=== PATIENT | female | born 1975 | race African-American/Black ===

== ENCOUNTER 2017-03-13 20:38 | Emergency (ER) | payer OTHER ==
[~2017-03-13] VITALS: Ht 157.5 cm; Wt 81.6 kg
[2017-03-13 20:58] VITALS: BP 108/66
--- NOTE | 2017-03-13 21:40 | NUR ---
PT.AMBULATE TO OF 2
--- NOTE | 2017-03-13 21:50 | NUR ---
41Y/F PATIENT PRESENTS TO ED WITH LT. ARM PAIN X 1 WK . PT STATES LT. ARM PAIN X 1 EK, NO TRAUMA NOR INJURY, NO MEDICAL HX.; SKIN IS PINK/WARM/DRY; AAOX4 WITH EVEN AND STEADY GAIT; LUNGS CLEAR BL; HR EVEN AND REGULAR; PT DENIES ANY FEVER, CP, SOB, OR COUGH AT THIS TIME;C/O LT. ARM PAIN PATIENT STATES PAIN OF 8/10 AT THIS TIME; VSS; PATIENT POSITIONED FOR COMFORT; HOB ELEVATED; BEDRAILS UP X2; BED DOWN. ER MD MADE AWARE OF PT STATUS.
[2017-03-13] MEDS ORDERED: KETOROLAC 60 MG/2 ML VIAL IM ONE (21:55)
--- NOTE | 2017-03-13 22:00 | NUR ---
Patient being evaluated by SERENA DICKERSON at bedside.
[2017-03-13 22:23] VITALS: BP 108/66
--- NOTE | 2017-03-13 22:23 | NUR ---
Patient discharged with v/s stable. Written and verbal after care instructions given and explained. Patient alert, oriented and verbalized understanding of instructions. Ambulatory with steady gait. All questions addressed prior to discharge. ID band removed. Patient advised to follow up with PMD. Rx of NORCO 5/325MG, MOTRIN 800 MG, MEDRL DOSEPAK 4 MG given. Patient educated on indication of medication including possible reaction and side effects. Opportunity to ask questions provided and answered.
== END 2017-03-13 22:23 | disposition home or self-care (01) ==
LOC: MED 20:38
CPT/HCPCS: 29125; 96372; 99283; J1885

== ENCOUNTER 2017-08-10 21:19 | Emergency (ER) | payer OTHER ==
[~2017-08-10] VITALS: Ht 157.5 cm; Wt 81.6 kg
[2017-08-10 21:25] VITALS: BP 124/71
--- NOTE | 2017-08-10 22:32 | NUR ---
AMBULATED TO ER BED 2
--- NOTE | 2017-08-10 22:45 | NUR ---
42/F CAME IN WITH C/O 04/25 RT ARMPIT PAIN X 2 DAYS. RT ARMPIT NOTED WITH BOIL, NO DRAINAGE, NO ERYTHEMA NOTED, +PMSC. PT DENIES FEVER, N/V/D. CURRENTLY AFEBRILE. DENIES PMH/RX. TOOK IBUPROFEN AT 0800, REPORTS EFFECTIVE PAIN RELIEF
--- NOTE | 2017-08-10 23:26 | NUR ---
Patient discharged with v/s stable. Written and verbal after care instructions given and explained. Patient alert, oriented and verbalized understanding of instructions. Ambulatory with steady gait. All questions addressed prior to discharge. ID band removed. Patient advised to follow up with PMD. Rx of CLINDAGEL TOPICAL given. Patient educated on indication of medication including possible reaction and side effects. Opportunity to ask questions provided and answered.
[2017-08-10 23:27] VITALS: BP 110/63
== END 2017-08-10 23:26 | disposition home or self-care (01) ==
LOC: MED 21:19
DX: L73.2 Hidradenitis suppurativa (principal)
CPT/HCPCS: 99283

== ENCOUNTER 2017-09-05 13:07 | Emergency (ER) | payer OTHER ==
[~2017-09-05] VITALS: Ht 157.5 cm; Wt 85.4 kg
[2017-09-05 13:10] VITALS: BP 148/72
--- NOTE | 2017-09-05 13:14 | NUR ---
PATIENT TO ER BED 12
--- NOTE | 2017-09-05 13:16 | NUR ---
42F BIB SELF C/O LEFT FOREHEAD PAIN X THIS AM; DENIES TRAUMA OR INJURY TO SITE AT THIS TIME. DENIES N/V/D; SKIN IS PINK/WARM/DRY; AAOX4 WITH EVEN AND STEADY GAIT; LUNGS CLEAR BL; PT DENIES ANY FEVER, CP, SOB, OR COUGH AT THIS TIME; PATIENT STATES PAIN OF 8/10 AT THIS TIME; 8 PATIENT POSITIONED FOR COMFORT; HOB ELEVATED; BEDRAILS UP X2; BED DOWN. ER MD MADE AWARE OF PT STATUS.
--- NOTE | 2017-09-05 13:50 | NUR ---
Patient being evaluated by DR AGUILERA at bedside.
[2017-09-05 13:55] LABS: APPEARANCE,URINE CLEAR (CLEAR); BILIRUBIN,URINE NEGATIVE (NEGATIVE); BLOOD, URINE TRACE-I (NEGATIVE); COLOR,URINE YELLOW (YELLOW); LEUKOCYTE ESTERASE ,URINE NEGATIVE (NEGATIVE); NITRITE, URINE NEGATIVE (NEGATIVE); UGLUCOSE NEGATIVE (NEGATIVE)
[2017-09-05] MEDS ORDERED: IBUPROFEN 600 MG TAB PO ONE (13:55)
[2017-09-05] MEDS ORDERED: ACETAMINOPHEN EXTRA STRENGTH 500 MG TAB PO ONE (13:55)
[2017-09-05 14:14] LABS: RBC,URINE 3-10 (FEW) /HPF (0-5); WBC,URINE 0-5 (RARE) /HPF (0-5)
[2017-09-05 15:44] VITALS: BP 110/67
--- NOTE | 2017-09-05 15:44 | NUR ---
Patient discharged with v/s stable. Written and verbal after care instructions given and explained. Patient alert, oriented and verbalized understanding of instructions. Ambulatory with . All questions addressed prior to discharge. ID band removed. Patient advised to follow up with PMD. Rx of IBUPROFEN & TYLENOL given. Patient educated on indication of medication including possible reaction and side effects. Opportunity to ask questions provided and answered.
== END 2017-09-05 15:44 | disposition home or self-care (01) ==
LOC: MED 13:07
DX: G44.209 Tension-type headache, unspecified, not intractable (principal)
CPT/HCPCS: 81001; 81025; 99283

== ENCOUNTER 2018-06-16 19:48 | Emergency (ER) | payer OTHER ==
[~2018-06-16] VITALS: Ht 157.5 cm; Wt 65.8 kg
[2018-06-16 19:53] VITALS: BP 114/61
--- NOTE | 2018-06-16 19:55 | NUR ---
TO LOBBY A/W BED, SHELDON LEMUS NOTED
[2018-06-16 20:15] VITALS: BP 114/61
--- NOTE | 2018-06-16 23:20 | NUR ---
PATIENT LEFT WITHOUT BEING SEEN BY DR. HUGHES. NO FURTHER CARE PROVIDED FOR PATIENT.
== END 2018-06-16 23:20 | disposition left against medical advice (07) ==
LOC: MED 19:48
DX: M79.602 Pain in left arm (principal); Z53.21 Procedure and treatment not carried out due to patient leaving prior to being seen by health care provider

== ENCOUNTER 2021-02-10 20:02 | Emergency (ER) | payer OTHER ==
[~2021-02-10] VITALS: Ht 154.9 cm; Wt 81.6 kg
[2021-02-10 20:06] VITALS: BP 126/79
--- NOTE | 2021-02-10 20:09 | NUR ---
TO LOBBY A/W BED AMBULATORY
--- NOTE | 2021-02-10 21:13 | NUR ---
PT AMBULATED TO BED 1
--- NOTE | 2021-02-10 21:15 | NUR ---
PT. IS A 45 Y/O FEMALE THAT CAME INTO ED WITH C/O OF ABSCESS IN HER GENTIALS THAT STARTED 3 DAYS AGO. SHE ALSO STATES THAT SHE HAS "BOILS" IN HER BOTH ARMPITS THAT STARTED TWO WEEKS AGO. PT. STATES THAT HER PAIN FOR HER ABSCESS IN HER GENTIALS IS AN 8/10 ON THE PAIN SCALE; SKIN IS PINK/WARM/DRY; AAOX4 WITH EVEN AND STEADY GAIT; HR EVEN AND REGULAR; PT DENIES ANY FEVER, CP, SOB, OR COUGH AT THIS TIME; VSS; PATIENT POSITIONED FOR COMFORT; HOB ELEVATED; BEDRAILS UP X2; BED DOWN. ER MD MADE AWARE OF PT STATUS. PMH: NONE ALLERGIES: NKA
[2021-02-10] MEDS: LIDOCAINE MPF 1% 10 MG/ML VIAL INJ ONE (22:34)
[2021-02-10] MEDS ORDERED: SULF-58 PO (23:18)
[2021-02-10 23:42] VITALS: BP 126/79
--- NOTE | 2021-02-10 23:42 | NUR ---
Patient discharged with v/s stable. Written and verbal after care instructions given and explained. Patient alert, oriented and verbalized understanding of instructions. Ambulatory with steady gait. All questions addressed prior to discharge. Patient advised to follow up with PMD. Rx of BACTRIM given. Patient educated on indication of medication including possible reaction and side effects. Opportunity to ask questions provided and answered.
== END 2021-02-10 23:42 | disposition home or self-care (01) ==
LOC: MED 20:02
DX: L02.214 Cutaneous abscess of groin (principal); Z79.899 Other long term (current) drug therapy
CPT/HCPCS: 10060; 99283; J2001

== ENCOUNTER 2021-04-28 09:24 | Emergency (ER) | payer OTHER ==
[~2021-04-28] VITALS: Ht 157.5 cm; Wt 88.9 kg
[~2021-04-28 09:24] MED LIST: SULF-58 PO
[2021-04-28 09:33] VITALS: BP 119/73
--- NOTE | 2021-04-28 09:37 | NUR ---
PT TO LOBBY.
[2021-04-28] MEDS ORDERED: KETOROLAC 60 MG/2 ML VIAL IM ONE (09:50)
--- NOTE | 2021-04-28 09:53 | NUR ---
46 Y/O FEMALE C/O NECK PAIN X2DAYS 05/26 DESCRIBES ACHING NON-RADIATING. PT STATES SHE TOOK TYNENOL AT HOME WITH NO RELIEF PRIOR TO ARRIVAL. DENIES N/V, DENIES FEVER/CHILLS. DENIES TRAUMA/INJURY. DENIES PMH NKA
--- NOTE | 2021-04-28 09:59 | NUR ---
Pt ambulated to bed 09.
--- NOTE | 2021-04-28 10:48 | NUR ---
Positive relief after Toradol; 04/25. [place] provided per request.
[2021-04-28] MEDS ORDERED: ACET-8386 PO (11:19)
[2021-04-28] MEDS ORDERED: IBUP-2213 PO (11:19)
--- NOTE | 2021-04-28 11:20 | NUR ---
Patient reports pain 3/10.
--- NOTE | 2021-04-28 11:28 | NUR ---
Patient discharged with v/s stable. Written and verbal after care instructions given and explained. Patient alert, oriented and verbalized understanding of instructions. Ambulatory with steady gait. All questions addressed prior to discharge. ID band removed. Patient advised to follow up with PMD. Rx of Ibuprofen, Hydrocodone-Acetaminophen given. Patient educated on indication of medication including possible reaction and side effects. Opportunity to ask questions provided and answered.
[2021-04-28 11:29] VITALS: BP 112/72
== END 2021-04-28 11:28 | disposition home or self-care (01) ==
LOC: MED 09:24
DX: J02.9 Acute pharyngitis, unspecified (principal); R59.1 Generalized enlarged lymph nodes; Z79.899 Other long term (current) drug therapy; Z98.890 Other specified postprocedural states
CPT/HCPCS: 96372; 99283; J1885